=== PATIENT | female | born 1960 | race Caucasian/White ===

== ENCOUNTER 2024-08-30 11:40 | Emergency (ER) | payer BC, SELFPAY ==
[2024-08-30 11:41] VITALS: BP 177/111
--- NOTE | 2024-08-30 11:49 | ED.GENMED ---
ED Provider Triage
<Sara Rodriguez PA-C - Last Filed: 08/30/24 11:53>
-
Patient seen by provider in Triage?: Seen in Triage
Attestation: A medical screening examination has been initiated by a qualified medical provider. Based on the assessment performed at this time, it has been determined that an emergent medical condition may exist and the patient has been informed
that further medical evaluation and possible additional diagnostic testing may be needed.
HPI: 64yoF here with R flank pain. Started at 3am. Associated with hematuria, passing clots. Hx of kidney stones and this feels the same.
GENERAL: Alert , in no apparent distress
EYE: No visual abnormalities.
NECK: Trachea midline
ENT: No visible abnormalities.
LUNGS: No acute respiratory distress
NEUROLOGICAL: Alert and oriented
SKIN: Skin intact. No visible changes.
MUSCULOSKELETAL: Moving extremities normally
PSYCH: Normal and appropriate interaction.
This is a medical evaluation conducted in person to initiate diagnostic evaluation and provide initial therapeutics. Please see further documentation by the treating clinician.
CBC, CMP, UA, and CT abdomen without contrast ordered.
History of Present Illness
<Sara Rodriguez PA-C - Last Filed: 08/30/24 11:53>
General
Chief Complaint: Urinary Symptoms
Time Seen by Provider: 08/30/24 12:28
<Katie Pritchard PA-C - Last Filed: 08/30/24 14:53>
General
Source: patient
Exam Limitations: none
Nursing documentation reviewed up to this point in time: agreed with
History of Present Illness
History of Present Illness:
64 y/o F
with h/o CKD, htn, hsleep apnea, kidney stones, UTIs, IDDM (off insulin right now)
here with R flank pain that woke her up from sleep this morning
she has had a little urinary pressure for the past few days but didn't think anything of it until she started having blood inher urine with afew small clots
she passed the clots and went tback to bed but the pain did return
she has had colicky pain sinc e
no fever/nausea/vomiting, chills, dysuria
does have h/o both kidney infections and kidney stones
pain got better here.
Past History
<Sara Rodriguez PA-C - Last Filed: 08/30/24 11:53>
Past History
ED Past Medical History: HTN, Hypercholesterolemia, IDDM (Insulin requiring diabetes), Renal failure (Chronic kidney disease stage III), Psychiatric (Anxiety), Other (Pyelonephritis, UTIs, kidney stones, chronic dizziness) and Other (chronic low
back pain with L L5 DANILO, atypical chest pain, orthostasis)
ED Past Surgical History: Cholecystectomy
Social History
Tobacco: Non-smoker
Alcohol: None
Drug: None
Personal:
Living: alone
Employment: Employed ([employer])
Family History
Family History: Other (Mother with pulmonary fibrosis)
Review of Systems
<Katie Pritchard PA-C - Last Filed: 08/30/24 14:53>
Review of Systems
Allergies reviewed?: Yes
All Other Systems: Not applicable
Phy Exam
<Katie Pritchard PA-C - Last Filed: 08/30/24 14:53>
Physical Exam
Physical Exam:
GENERAL: Alert, comfortable
Neck: supple
CARDIAC: Regular rate and rhythm .
LUNGS: Clear breath sounds bilaterally, no acute respiratory distress, no wheezes/rales/rhonchi
ABDOMEN: Soft, normal bowel sounds, nondistended, nontender, no guarding, no rebound, neg albarran's
back: nontender, no cva tendnress, full ROM
NEUROLOGICAL: Alert and oriented, no focal neuro deficits
SKIN: Warm and dry, skin intact.
PSYCH: Normal and appropriate interaction.
Course
<Sara Rodriguez PA-C - Last Filed: 08/30/24 11:53>
Orders/Labs/Results
Orders:
Orders
08/30/24 11:51
CT Abd/pel Without Iv Or Oral Urgent
Comment:
Reason For Exam: R flank pain, hx of stones
08/30/24 11:55
CBC/With Diff [Complete Blood Count/With Diff] Urgent
CMP [Comprehensive Metabolic Panel] Urgent
Urinalysis Reflex To Culture Urgent
Date Specimen was Collected: 08/30/24
Time Specimen was Collected: 11:46
Urine Microscopic Reflex Cult Urgent
Urine Culture Urgent
JACI Source: U
Specimen Description:
Date Specimen was Collected: 08/30/24
Time Specimen was Collected: 11:46
Abnormal Lab Results
08/30/24
11:55
WBC 12.4 H 10^3/uL
(4.8-10.8)
MPV 11.0 H fL
(7.4-10.4)
Abs Immat Gran (auto) 0.1 H 10^3/uL
(0-0.05)
Absolute Neuts (auto) 9.9 H 10^3/uL
(1.4-6.5)
Absolute Monos (auto) 1.0 H 10^3/uL
(0.1-0.6)
Neutrophils % 80.1 H %
(42.2-75.2)
Lymphocytes % 10.0 L %
(20.5-51.1)
Carbon Dioxide 21 L mmol/L
(22-30)
BUN 34 H mg/dl
(7-17)
Creatinine 1.4 H mg/dL
(0.6-1.0)
Glucose 305 H mg/dl
(70-99)
Ur Occult Blood Reflex 4+ A
(Negative)
Leukocyte Esterase Rfl 1+ A
(Negative)
Urine RBC 60-70 A /HPF
(0-2)
Urine WBC (Reflex) 26-30 A /HPF
(0-5)
Urine Bacteria (Reflex) Few A
(Negative)
Urine Glucose 1+ A
(Negative)
Urine Albumin (Reflex) 1+ A
(Neg - Trace)
08/30/24 11:55
08/30/24 11:55
Vital Signs
Initial and Last Documented VS:
Initial Vital Signs
Temp Pulse Resp BP Pulse Ox
97.5 F 90 18 177/111 100
08/30/24 11:41 08/30/24 11:41 08/30/24 11:41 08/30/24 11:41 08/30/24 11:41
Last Documented Vital Signs
Temp Pulse Resp BP Pulse Ox
97.5 F 86 18 153/94 100
08/30/24 11:41 08/30/24 12:53 08/30/24 12:53 08/30/24 12:53 08/30/24 12:53
<Katie Pritchard PA-C - Last Filed: 08/30/24 14:53>
Orders/Labs/Results
Orders:
Orders
08/30/24 11:51
CT Abd/pel Without Iv Or Oral Urgent
Comment:
Reason For Exam: R flank pain, hx of stones
08/30/24 11:55
CBC/With Diff [Complete Blood Count/With Diff] Urgent
CMP [Comprehensive Metabolic Panel] Urgent
Urinalysis Reflex To Culture Urgent
Date Specimen was Collected: 08/30/24
Time Specimen was Collected: 11:46
Urine Microscopic Reflex Cult Urgent
Urine Culture Urgent
JACI Source: U
Specimen Description:
Date Specimen was Collected: 08/30/24
Time Specimen was Collected: 11:46
Abnormal Lab Results
08/30/24
11:55
WBC 12.4 H 10^3/uL
(4.8-10.8)
MPV 11.0 H fL
(7.4-10.4)
Abs Immat Gran (auto) 0.1 H 10^3/uL
(0-0.05)
Absolute Neuts (auto) 9.9 H 10^3/uL
(1.4-6.5)
Absolute Monos (auto) 1.0 H 10^3/uL
(0.1-0.6)
Neutrophils % 80.1 H %
(42.2-75.2)
Lymphocytes % 10.0 L %
(20.5-51.1)
Carbon Dioxide 21 L mmol/L
(22-30)
BUN 34 H mg/dl
(7-17)
Creatinine 1.4 H mg/dL
(0.6-1.0)
Glucose 305 H mg/dl
(70-99)
Ur Occult Blood Reflex 4+ A
(Negative)
Leukocyte Esterase Rfl 1+ A
(Negative)
Urine RBC 60-70 A /HPF
(0-2)
Urine WBC (Reflex) 26-30 A /HPF
(0-5)
Urine Bacteria (Reflex) Few A
(Negative)
Urine Glucose 1+ A
(Negative)
Urine Albumin (Reflex) 1+ A
(Neg - Trace)
08/30/24 11:55
08/30/24 11:55
Vital Signs
Initial and Last Documented VS:
Initial Vital Signs
Temp Pulse Resp BP Pulse Ox
97.5 F 90 18 177/111 100
08/30/24 11:41 08/30/24 11:41 08/30/24 11:41 08/30/24 11:41 08/30/24 11:41
Last Documented Vital Signs
Temp Pulse Resp BP Pulse Ox
97.5 F 86 18 153/94 100
08/30/24 11:41 08/30/24 12:53 08/30/24 12:53 08/30/24 12:53 08/30/24 12:53
<Katie Pritchard PA-C - Last Filed: 08/30/24 14:53>
MDM/Problems Addressed
Differential Diagnosis Includes:
flank pain, kidney stone, uti, pyelo
MDM/Problems Addressed:
64 y/o F woke up with R flank pain radiating to right abdomen and has had a few days of furinary frequency as well and then this morning had gross hematuria
looks very comfortable, afebrile
wbc 12.4
cr 1.4 which is baseline
ua 4+ blood, 1+ LE, neg nitrite, 6--70 rbcs, 26-30 wbcs, few bacteria
and ct shows
right pelvicalcyceal and ureteral dilation, which extends to ureterovesical junction
no stone or mass seen; this is new since 2019; she has had kidney stones before
i'm guessing that she passed the stone since her pain is better now
d/w dr. albright from urology who agreed
likely recently passed stone
pt encouraed to f/u to ensure resolution fo this dilation
in meantime, will treat uti
cefdinir bid
i d/w pharmacy about whether pt needed to be renally dosed and she does not
300 mg bid
urine culture pendning
pain has resolved
pt aware of her BG; she came off her inuslin
her pcp is going to change her medication and she is aware of tHIS bg.
<Katie Pritchard PA-C - Last Filed: 08/30/24 14:53>
*Critical Care Note
Total Time (30-74mins, 75-104mins- exclusive of procedures): Not Applicable
ED Attending Note
<Sara Rodriguez PA-C - Last Filed: 08/30/24 11:53>
-
Portions of this chart may have been created with voice recognition software.� Occasional wrong word or��sound alike� substitutions may have occurred due to the inherent limitations of voice recognition software.
Discharge Plan
Departure
Patient Disposition: Home (Routine Discharge)
Date of Disposition: 08/30/24
Time of Disposition: 14:23
Patient with high blood pressure during this ER visit?: No
Condition: Fair
Covid-19: Not Applicable
Discharge Problem:
UTI (urinary tract infection)
Instructions: Urinary Tract Infection, Adult (DC)
Prescriptions:
New
cefdinir 300 mg capsule
300 mg PO BID Qty: 20 0RF
No Action
ascorbic acid (vitamin C) [Vitamin C] 500 MG tablet
500 mg PO DAILY
lisinopril 2.5 MG tablet
2.5 mg PO DAILY
cholecalciferol (vitamin D3) 2,000 UNITS tablet
2,000 units PO DAILY
atorvastatin 40 MG tablet
40 mg PO QPM Qty: 30 0RF
acetaminophen 325 MG tablet
650 mg PO Q4HPRN PRN (Reason: DE GUZMAN, mild pain, or temp >100.4F) 0RF
cyanocobalamin (vitamin B-12) 1,000 MCG tablet
1,000 mcg PO TH Qty: 30 0RF
aspirin 81 MG tablet,chewable
81 mg PO DAILY Qty: 1 0RF
insulin aspart U-100 [Novolog FlexPen U-100 Insulin] 300 UNITS/3 ML insulin pen
10 units SC AC Qty: 1 0RF
insulin detemir U-100 [Levemir FlexTouch U100 Insulin] 300 UNIT/3 ML insulin pen
35 unit SC HS
pantoprazole 40 MG tablet,delayed release (DR/EC)
40 mg PO BID Qty: 60 0RF
sulfamethoxazole-trimethoprim 1 TABLET tablet
1 tab PO BID Qty: 14 0RF
meclizine 25 mg tablet
25 mg PO TID PRN (Reason: dizziness) Qty: 7 0RF
Referrals:
Mara Zavala MD [Family Provider] - Follow up in 2-3 days
Activity Restrictions/Additional Instructions:
YOUR URINE HAS BLOOD AND BACTERIA AND YOU CAT SCAN SHOWED THAT YOU HAVE SOME DILATION OF YOUR COLLECTING SYSTEM THAT SUGGESTS THAT YOU HAD A STONE THAT YOU RECENTLY PASSED
THIS DOES NEED REPEAT IMAGING TO BE SURE THAT THE SWELLING IMPROVES
YOU SHOULD TAKE TYLENOL FOR PAIN NEEDED
TAKE CEFDINIR TWICE A DAY FOR 10 DAYS TO TREAT THE INFECTION
DRINK FLUIDS
RETURN FOR : SEVERE PAIN, FEVER, VOMITING WORSE BLOO DIN URINE OR ANY CONCERNS.
Interventions
Interventions:
*Risk Screen - Suicide Last Done: 08/30/24 12:48
*General Assessment Last Done: 08/30/24 12:48
*Neglect/Abuse Screening Last Done: 08/30/24 12:48
ED- Fall Risk Assessment Last Done: 08/30/24 12:48
*ED COVID-19 Vaccine History Last Done: 08/30/24 12:48
ED-Female Genitourinary Assessment Last Done: 08/30/24 12:48
Discharge Date and Time
Print Language: [place]
[2024-08-30 12:04] LABS: % Basophils 0.2 % (0-2); % Immature Granulocytes 0.5 % (0-0.5); % Monocytes 8.2 % (1.7-9.3); % Neutrophils 80.1 % (42.2-75.2); Absolute Eosinophils 0.1 10^3/uL (0-0.7); Absolute Immature Granulocytes 0.1 10^3/uL (0-0.05); Absolute Lymphocytes 1.2 10^3/uL (1.2-3.4); Absolute Neutrophils 9.9 10^3/uL (1.4-6.5); Hematocrit 38.7 % (37.0-47.0); Mean Corp Hgb Conc. 33.6 g/dL (33.0-37.0); Mean Corpuscular Hgb 30.4 pg (27.0-31.0); Mean Corpuscular Volume 90.6 fL (81.0-99.0); Nucleated Red Blood Cells % 0 %; Platelet Count 265 10^3/uL (130-400); Red Blood Cell Count 4.27 10^6/uL (4.20-5.40); Red Cell Dist. Width 13.2 % (11.5-14.5); White Blood Cell Count 12.4 10^3/uL (4.8-10.8)
[2024-08-30 12:08] LABS: Urine Albumin 1+ (Neg - Trace); Urine Bilirubin Negative (Negative); Urine Character Clear (Clear); Urine Color Yellow; Urine Glucose 1+ (Negative); Urine Ketone Negative (Negative); Urine Leukocyte 1+ (Negative); Urine Nitrite Negative (Negative); Urine Occult Blood 4+ (Negative); Urine Urobilinogen Negative (Neg - 1+)
[2024-08-30 12:34] LABS: ALT (SGPT) 29 U/L (0-35); AST (SGOT) 25 U/L (14-36); Albumin 4.3 g/dl (3.5-5.0); Alkaline Phosphatase 107 U/L (38-126); Blood Urea Nitrogen 34 mg/dl (7-17); Calcium 10.2 mg/dl (8.4-10.2); Carbon Dioxide 21 mmol/L (22-30); Chloride 105 mmol/L (98-107); Glucose 305 mg/dl (70-99); Sodium 140 mmol/L (135-145); Total Bilirubin 0.6 mg/dl (0.2-1.3); Total Protein 7.2 g/dl (6.3-8.2); eGFR 42.54
[2024-08-30 12:48] VITALS: BMI 28.3
[2024-08-30 12:53] VITALS: BP 153/94
[2024-08-30 12:53] LABS: Urine White Cell 26-30 /HPF (0-5)
[2024-08-30 12:54] LABS: Urine Bacteria Few (Negative); Urine Red Blood Cell 60-70 /HPF (0-2)
[2024-08-30] MEDS: OMNICEF 300 MG PO (14:57)
[2024-08-30 16:15] VITALS: BP 152/88
== END 2024-08-30 16:16 | disposition home or self-care (01) ==
LOC: EMR 11:40
PROVIDERS: Emergency Medicine; EMERGENCY PHYSICIAN Student in an Organized Health Care Education/Training Program; FAMILY PHYSICIAN Internal Medicine
DX: N39.0 Urinary tract infection, site not specified (principal); R31.0 Gross hematuria; I12.9 Hypertensive chronic kidney disease with stage 1 through stage 4 chronic kidney disease, or unspecified chronic kidney disease; E11.22 Type 2 diabetes mellitus with diabetic chronic kidney disease; N18.30 Chronic kidney disease, stage 3 unspecified; E78.00 Pure hypercholesterolemia, unspecified; G89.29 Other chronic pain; Z87.440 Personal history of urinary (tract) infections; Z87.442 Personal history of urinary calculi; Z90.49 Acquired absence of other specified parts of digestive tract
CPT/HCPCS: 99284; 74176; 80053; 81003; 81015; 85025; 87086

== ENCOUNTER 2025-05-17 17:05 | Emergency (ER) | payer BC, SELFPAY ==
[2025-05-17 17:08] LABS: Glucose - Point of Care 293 mg/dl (70-99)
[2025-05-17 17:09] VITALS: BP 167/90
[2025-05-17] MEDS: ZOFRAN 4 MG IV (17:32)
[2025-05-17] MEDS: VALIUM INJECTION 2 MG IV (17:32)
[2025-05-17] MEDS: NSS 1000 IV (17:32)
[2025-05-17] MEDS: COMPAZINE 10 MG IV (17:56)
[2025-05-17 19:11] LABS: Hematocrit 36.1 % (37.0-47.0); Hemoglobin 12.2 g/dL (12.0-16.0); Mean Corp Hgb Conc. 33.8 g/dL (33.0-37.0); Mean Corpuscular Volume 88.5 fL (81.0-99.0); Nucleated Red Blood Cells % 0 %; Platelet Count 232 10^3/uL (130-400); Red Cell Dist. Width 13.0 % (11.5-14.5)
[2025-05-17 19:26] LABS: ALT (SGPT) 21 U/L (0-35); AST (SGOT) 21 U/L (14-36); Albumin 4.1 g/dl (3.5-5.0); Alkaline Phosphatase 125 U/L (38-126); Blood Urea Nitrogen 38 mg/dl (7-17); Calcium 9.7 mg/dl (8.4-10.2); Carbon Dioxide 15 mmol/L (22-30); Chloride 114 mmol/L (98-107); Glucose 325 mg/dl (70-99); Lipase 127 U/L (23-300); Potassium 3.9 mmol/L (3.5-5.1); Sodium 139 mmol/L (135-145); Total Protein 7.3 g/dl (6.3-8.2); eGFR 51.18
[2025-05-17 19:51] LABS: Urine Character Slightly Cloudy (Clear)
[2025-05-17 20:02] LABS: Urine Squamous Cell 0-2 /LPF (Few)
[2025-05-17 20:03] LABS: Urine White Cell 21-25 /HPF (0-5)
[2025-05-17 20:13] VITALS: BP 161/85
[2025-05-17 21:00] VITALS: BP 136/78
[2025-05-17] MEDS: ANTIVERT 25 MG PO (21:00)
[2025-05-17] MEDS: PROTONIX IV 40 MG IV (21:01)
[2025-05-17 22:03] VITALS: BP 155/91
[2025-05-17] MEDS: OMNICEF 300 MG PO (22:16)
--- NOTE | 2025-05-17 22:59 | ED.GENMED ---
History of Present Illness
General
Chief Complaint: Dizziness
Source: patient
Exam Limitations: none
Time Seen by Provider: 05/17/25 17:15
Nursing documentation reviewed up to this point in time: agreed with
History of Present Illness
History of Present Illness:
Patient to ED with complaint of dizziness, n/v. Symptoms started suddently this afternoon. SHe reports history of vertigo but not to this extent. Brought to ED by friend for eval. Denies fever/chills, recent illness.
Past History
Past History
ED Past Medical History: HTN, Hypercholesterolemia, IDDM (Insulin requiring diabetes), Renal failure (Chronic kidney disease stage III), Psychiatric (Anxiety), Other (Pyelonephritis, UTIs, kidney stones, chronic dizziness) and Other (chronic low
back pain with L L5 DANILO, atypical chest pain, orthostasis)
ED Past Surgical History: Cholecystectomy
Social History
Tobacco: Non-smoker
Alcohol: None
Drug: None
Personal:
Living: alone
Employment: Employed ([employer])
Family History
Family History: Other (Mother with pulmonary fibrosis)
Review of Systems
Review of Systems
Allergies reviewed?: Yes
All Other Systems: ROS reviewed and negative except as documented in HPI and ROS
Constitutional: Reports no symptoms
EENT: Reports no symptoms
Respiratory: Reports no symptoms
Cardiac: Reports no symptoms
ABD/GI: Reports nausea and vomiting
: Reports no symptoms
Musculoskeletal: Reports no symptoms
Skin: Reports no symptoms
Neurological: Reports dizzy
Psychiatric: Reports no symptoms
Phy Exam
General Physical Exam
General Presentation: moderate distress
General age: appears stated age
General Skin: warm and dry
General Habitus: normal
General Mental: alert
General Hydration: appears well hydrated
Cardiovascular Exam
Cardiovascular Exam: regular rate/rhythm and no edema
Gastrointestinal Exam
Gastrointestinal Exam: non tender, soft and no organomegaly
Neurological Exam
Neurological Exam: alert, oriented x3, CN II-XII intact, no motor deficits, no sensory deficits, speech normal and normal gait
Musculoskeletal Exam
Musculoskeletal Exam: full ROM and neuro vasc intact
Skin Exam
Skin Exam: normal color, warm/dry and no rash
Psychiatric Exam
Psychiatric Exam: normal mood/affect
Course
Orders/Labs/Results
Orders:
Orders
05/17/25 17:16
0.9% Sodium Chloride 1000 ml [Nss] 1,000 ml IV BOLUS
Ondansetron Injectable [Zofran] 4 mg IV NOW STA
diazePAM [Valium Injection] 2 mg IV NOW STA
05/17/25 17:47
Prochlorperazine [Compazine] 10 mg IV NOW STA
05/17/25 18:40
CT Head W/o Iv Contrast Urgent
Comment:
Reason For Exam: dizzy
05/17/25 18:59
Complete Blood Count/With Diff Urgent
Comprehensive Metabolic Panel Urgent
Lipase Urgent
05/17/25 19:43
Urinalysis Reflex To Culture Urgent
Date Specimen was Collected: 05/17/25
Time Specimen was Collected: 19:42
Urine Microscopic Reflex Cult Urgent
Urine Culture Urgent
JACI Source: U
Specimen Description:
Date Specimen was Collected: 05/17/25
Time Specimen was Collected: 19:42
05/17/25 20:51
Meclizine [Antivert] 25 mg PO NOW STA
Pantoprazole [Protonix IV] 40 mg IV NOW STA
05/17/25 22:09
Cefdinir [Omnicef] 300 mg PO NOW STA
Abnormal Lab Results
05/17/25 05/17/25 05/17/25
17:07 18:59 19:43
WBC 12.1 H 10^3/uL
(4.8-10.8)
RBC 4.08 L 10^6/uL
(4.20-5.40)
Hct 36.1 L %
(37.0-47.0)
MPV 10.7 H fL
(7.4-10.4)
Absolute Neuts (auto) 10.9 H 10^3/uL
(1.4-6.5)
Absolute Lymphs (auto) 0.7 L 10^3/uL
(1.2-3.4)
Neutrophils % 90.2 H %
(42.2-75.2)
Lymphocytes % 5.5 L %
(20.5-51.1)
Chloride 114 H mmol/L
(98-107)
Carbon Dioxide 15 L mmol/L
(22-30)
BUN 38 H mg/dl
(7-17)
Creatinine 1.2 H mg/dL
(0.6-1.0)
Glucose 325 H mg/dl
(70-99)
Urine Ketones 1+ A
(Negative)
Ur Occult Blood Reflex 1+ A
(Negative)
Leukocyte Esterase Rfl 2+ A
(Negative)
Urine RBC 3-6 A /HPF
(0-2)
Urine WBC (Reflex) 21-25 A /HPF
(0-5)
Urine Bacteria (Reflex) Many A
(Negative)
Urine Glucose 4+ A
(Negative)
Urine Albumin (Reflex) 2+ A
(Neg - Trace)
POC Glucose 293 H mg/dl
(70-99)
05/17/25 18:59
05/17/25 18:59
Vital Signs
Initial and Last Documented VS:
Initial Vital Signs
Temp Pulse Resp BP Pulse Ox
97.0 F 95 16 167/90 99
05/17/25 17:09 05/17/25 17:09 05/17/25 17:09 05/17/25 17:09 05/17/25 17:09
Last Documented Vital Signs
Temp Pulse Resp BP Pulse Ox
97 F 95 18 155/91 98
05/17/25 17:09 05/17/25 17:09 05/17/25 17:09 05/17/25 22:03 05/17/25 22:15
*Radiology
Radiology exam reviewed: radiology read reviewed
*Pulse Oximetry
SaO2: 98
Oxygen Mode of Delivery: Room air
Patient hypoxic: no
*Critical Care Note
Total Time (30-74mins, 75-104mins- exclusive of procedures): Not Applicable
Update Note
Update Note:
Patient to ED witht complaint of n/v, dizziness. History of vertigo, takes meclizine prn at home. Given IVF valium and compazine with good results. Head CT neg for acute findings. VSS, she remains afebrile. Labs reviewed. UA concerning for UTI.
Discussed findings with her. Will place on omnicef which she reports has been effective in the past. She will be discharged home and will follow closely with PCP. Given instructions on s/s to return to ED and she is agreeable to plan.
ED Attending Note
-
Portions of this chart may have been created with voice recognition software.� Occasional wrong word or��sound alike� substitutions may have occurred due to the inherent limitations of voice recognition software.
Discharge Plan
Departure
Patient Disposition: Home (Routine Discharge)
Date of Disposition: 05/17/25
Time of Disposition: 22:10
Patient with high blood pressure during this ER visit?: No
Condition: Good
Discharge Problem:
Vertigo, UTI (urinary tract infection)
Instructions: Urinary tract infections in adults, Dizziness
Prescriptions:
New
cefdinir 300 mg capsule
300 mg PO BID 5 Days Qty: 10 0RF
prochlorperazine maleate [Compazine] 10 mg tablet
10 mg PO Q8H PRN (Reason: nausea and vomiting) Qty: 12 0RF
No Action
ascorbic acid (vitamin C) [Vitamin C] 500 MG tablet
500 mg PO DAILY
lisinopril 2.5 MG tablet
2.5 mg PO DAILY
cholecalciferol (vitamin D3) 2,000 UNITS tablet
2,000 units PO DAILY
atorvastatin 40 MG tablet
40 mg PO QPM Qty: 30 0RF
acetaminophen 325 MG tablet
650 mg PO Q4HPRN PRN (Reason: DE GUZMAN, mild pain, or temp >100.4F) 0RF
cyanocobalamin (vitamin B-12) 1,000 MCG tablet
1,000 mcg PO TH Qty: 30 0RF
aspirin 81 MG tablet,chewable
81 mg PO DAILY Qty: 1 0RF
insulin aspart U-100 [Novolog FlexPen U-100 Insulin] 300 UNITS/3 ML insulin pen
10 units SC AC Qty: 1 0RF
insulin detemir U-100 [Levemir FlexTouch U100 Insulin] 300 UNIT/3 ML insulin pen
35 unit SC HS
pantoprazole 40 MG tablet,delayed release (DR/EC)
40 mg PO BID Qty: 60 0RF
sulfamethoxazole-trimethoprim 1 TABLET tablet
1 tab PO BID Qty: 14 0RF
meclizine 25 mg tablet
25 mg PO TID PRN (Reason: dizziness) Qty: 7 0RF
cefdinir 300 mg capsule
300 mg PO BID Qty: 20 0RF
Referrals:
Mara Zavala MD [Family Provider, Internal Medicine] - Follow up in 2-3 days
Stand Alone Forms: Return to Work
Activity Restrictions/Additional Instructions:
Return to the emergency department immediately for any changes in/worsening of your symptoms.
Interventions
Interventions:
*Risk Screen - Suicide Last Done: 05/17/25 22:20
*General Assessment Last Done: 05/17/25 17:19
*Neglect/Abuse Screening Last Done: 05/17/25 22:20
*ED COVID-19 Vaccine History Last Done: 05/17/25 17:09
*Nursing Disposition Last Done: 05/17/25 22:20
ED- Neurological Assessment Last Done: 05/17/25 17:19
ED- Cardiac Assessment Last Done: 05/17/25 17:19
ED Swallowing Screen Last Done: 05/17/25 21:00
Discharge Date and Time
Discharge Date/Time: 05/17/25 22:22
Print Language: CITIZEN OF [place]
== END 2025-05-17 22:22 | disposition home or self-care (01) ==
LOC: EMR 17:05
PROVIDERS: Nurse Practitioner; EMERGENCY PHYSICIAN Emergency Medicine; FAMILY PHYSICIAN Internal Medicine
DX: R42 Dizziness and giddiness (principal); R11.2 Nausea with vomiting, unspecified; N39.0 Urinary tract infection, site not specified; I12.9 Hypertensive chronic kidney disease with stage 1 through stage 4 chronic kidney disease, or unspecified chronic kidney disease; N18.30 Chronic kidney disease, stage 3 unspecified; E11.22 Type 2 diabetes mellitus with diabetic chronic kidney disease; E78.00 Pure hypercholesterolemia, unspecified; G89.29 Other chronic pain; F41.9 Anxiety disorder, unspecified; G47.30 Sleep apnea, unspecified; M19.90 Unspecified osteoarthritis, unspecified site; F41.0 Panic disorder [episodic paroxysmal anxiety]; M54.50 Low back pain, unspecified; Z79.4 Long term (current) use of insulin; Z79.82 Long term (current) use of aspirin; Z87.440 Personal history of urinary (tract) infections; Z87.442 Personal history of urinary calculi; Z86.73 Personal history of transient ischemic attack (TIA), and cerebral infarction without residual deficits; Z90.49 Acquired absence of other specified parts of digestive tract; Z88.5 Allergy status to narcotic agent; Z88.8 Allergy status to other drugs, medicaments and biological substances; Z88.4 Allergy status to anesthetic agent; Z88.1 Allergy status to other antibiotic agents; Z91.041 Radiographic dye allergy status; Z91.040 Latex allergy status
CPT/HCPCS: 99284; 96374; 96375 ×3; 96361; 70450; 80053; 81003; 81015; 82962; 83690; 85025; 87077; 87086; 87186